=== PATIENT | female | born 1970 | race Caucasian/White ===

== ENCOUNTER → 2018-10-21 | Outpatient (CLI) | payer OTHER ==
[~2018-10-21] MED LIST: IOHEXOL 300 MG/ML 75 ML VIAL. IV ONE
--- NOTE | 2018-10-21 14:52 | RAD ---
CT of the neck with contrast, 10/21/2018: History: Left clavicular region lump Multidetector CT imaging was performed following an IV bolus injection of iodinated contrast material. Multiplanar reconstructions were produced. There are hypertrophic degenerative change at the sternoclavicular articulations, worse on the left. A BB placed on the skin surface at this level suggests that the spurring at the left sternoclavicular joint corresponds to the area of palpable concern. There are also degenerative changes at the first costosternal articulations. No soft tissue mass is seen. The parotid, submandibular and thyroid glands are symmetric. The laryngeal region is unremarkable. A few small cervical lymph nodes are noted bilaterally without evidence of pathologic enlargement. There is mild mucosal thickening along the floor the right maxillary sinus. No free fluid is evident in the visualized paranasal sinuses. There are minimal marginal spurs in the cervical spine. No fracture or destructive bony lesion is seen. IMPRESSION: 1. Hypertrophic degenerative changes at the sternoclavicular articulations, worse on the left, corresponding to the area of palpable concern. 2. Mild mucosal thickening in the right maxillary sinus. PQRS Compliance Statement: One or more of the following individualized dose reduction techniques were utilized for this examination: 1. Automated exposure control 2. Adjustment of the mA and/or kV according to patient size 3. Use of iterative reconstruction technique PQRS Compliance Statement: One or more of the following individualized dose reduction techniques were utilized for this examination: 1. Automated exposure control 2. Adjustment of the mA and/or kV according to patient size 3. Use of iterative reconstruction technique
== END | disposition home or self-care (01) ==
LOC: CT 07:40
PROVIDERS: ATTEND Registered Nurse
DX: M89.312 Hypertrophy of bone, left shoulder (principal); M46.02 Spinal enthesopathy, cervical region; M19.012 Primary osteoarthritis, left shoulder; J34.89 Other specified disorders of nose and nasal sinuses
CPT/HCPCS: 70491; Q9967

== ENCOUNTER → 2019-05-13 | Day surgery (SDC) | payer OTHER ==
[~2019-05-13] MED LIST changes: +AMLO5TAB10 PO; +BUPR300T3 PO; +DEXAMETHASONE SOD PHOS 20 MG/5 ML VIAL. ONE; +ESCITALOPRAM OX20 MG PO; +FAMOTIDINE 20 MG/2 ML VIAL ONE; +GELATIN SPONGE SIZE 100. ONE; +GELATIN SPONGE SIZE 100. TP ONE; +HYDROcodone/APAP 5/325MG 1 TAB TABLET ONE; +HYDROcodone/APAP 5/325MG 1 TAB TABLET PO ONE; -IOHEXOL 300 MG/ML 75 ML VIAL. IV ONE; +IV RINGERS SOLUTION,LACTATED 1,000 ML IV SCH; +LEVO100T5 PO; +LIDOCAINE 2% PF Vial for OR 5 ML VIAL. ONE; +METHYLENE BLUE 1% IJ PRN; +MORPHINE SULFATE 2 MG/ML DISP.SYRIN. IV PRN; +MORPHINE SULFATE 4 MG/ML DISP.SYRIN. IV PRN; +OLME1TAB23 PO; +ONDANSETRON PF 4 MG/2 ML VIAL. IV PRN; +ONDANSETRON PF 4 MG/2 ML VIAL. ONE; +PANT20TA58 PO; +PHEN37.599 PO; +PROPOFOL 10,000 MCG/ML (20ML) VIAL IV ONE; +SEVOFLURANE 31 TO 60 MINUTES. IH ONE; +[UNRECOGNIZED DRUG - OTHER] ONE
--- NOTE | 2019-05-13 09:49 | DISCH ---
DISCHARGE INSTRUCTIONS-DC Condition on Discharge Condition on Discharge: Stable Activity after Discharge Activity Instructions for Disc: Activity as tolerated, Avoid exertion Driving Instructions after Dis: Do not drive today Diet after Discharge Diet after Discharge: Regular Wound/Incision Care Other wound/incision instructi: frequent sitz bathes Follow-Up Follow up with: Juan Diego two weeks DIANA CELESTE MD May 13, 2019 09:49
--- NOTE | 2019-05-13 09:53 | PDOC ---
BRIEF OPERATIVE NOTE Date: May 13, 2019 Pre-Op Diagnosis anal papilla Post-Op Diagnosis same Procedure Performed EUA, excision anal papilla Surgeon Juan Diego Anesthesia Type: General Blood Loss 10cc IV Fluid 600cc Specimens Obtained anal papilla Findings papilla, fissure Complications none Additional Remarks # [id number] DIANA CELESTE MD May 13, 2019 09:53
--- NOTE | 2019-05-13 10:04 | OP ---
DATE OF SURGERY: 05/13/2019 PREOPERATIVE DIAGNOSIS: Anal papilla. POSTOPERATIVE DIAGNOSIS: Anal papilla. PROCEDURE: Exam under anesthesia and excision of anal papilla. SURGEON: Diana Celeste MD ANESTHESIA: General LMA. ESTIMATED BLOOD LOSS: 10 mL. INTRAVENOUS FLUIDS: 600 mL. DESCRIPTION OF PROCEDURE: The patient was brought to the operating suite, given a general LMA and placed in the dorsal lithotomy position. Prepping the perineum and perianal area. A 0.5% Marcaine with epinephrine was infiltrated circumferentially around the anus. General two-finger dilatation was carried out. With a retractor in place, the papilla and associated ulceration were identified. A 2-0 chromic hemostatic stitch was placed proximally. The perianal skin incised and the LigaSure used to remove the papilla avoiding the sphincter. 2-0 chromic used for hemostasis. When hemostasis was present, a Gelfoam pack was placed in the anal canal. Sterile dressing applied. The patient was taken out of the lithotomy position, awakened from her anesthetic and taken to the recovery room in satisfactory condition. DIANA CELESTE MD DR: MANASA/janet JOB#: [id number] / [id number]
[2019-05-13 10:50] VITALS: BP 125/83
--- NOTE | 2019-05-15 15:07 | PATHOLOGY ---
[facility] Accession Number: [id number] . 01 Material submitted: . anus - ANAL PAPILLAE . 01 Clinical history: . Anal papillae . 02 Diagnosis: Segments of anal skin and squamous mucosa and underlying soft tissue, anal papillae, excision: - Hypertrophied anal papillae, with focal chronic inflammation. - Hemorrhoids, focal. . (JP:mm; 05/15/2019) [facility] 05/15/2019 1034 Local . 02 Comment: There is no evidence of malignancy. . ([facility]:mm; 05/15/2019) . 02 Electronically signed: . Lonnie Kelley MD, Pathologist NPI- [id number] . 01 Gross description: . The specimen is received in formalin, labeled "Evelina Richard, anal papillae". Received are three segments of epithelial covered tissue ranging in size from 0.6 x 0.5 x 0.3 to 2.6 x 1.9 x 1.3 cm in greatest dimensions. Sectioning reveals pale shearer to highly vascularized cut surfaces. Livestock Dealer sections from each segment are submitted in cassette A1. ([facility]; 05/14/2019) QA/[facility] 05/14/2019 0843 Local . 02 Pathologist provided ICD-10: K62.89, K64.8 . 02 CPT . 988121 Specimen Comment: A courtesy copy of this report has been sent to [phone], [phone] Specimen Comment: [id number] Specimen Comment: Report sent to and Performed at: [address], [place], [place] [id number] MD Jerson Oconnor MD Phone: [phone] Performed at: 02 [facility] [address] [place], [place] [id number] MD Lonnie Kelley MD Phone: [phone]
== END ==
LOC: SURG 08:07
PROVIDERS: ATTEND Surgery
DX: K62.89 Other specified diseases of anus and rectum (principal); K64.8 Other hemorrhoids
CPT/HCPCS: 46220; 88305; J1100; J1956; J2405; J2704; J3010; J3490; J2001

== ENCOUNTER 2019-09-25 19:10 | Emergency (ER) | payer BC, OTHER ==
[~2019-09-25] VITALS: Ht 162.6 cm; Wt 175.0 kg
[~2019-09-25 19:10] MED LIST changes: -DEXAMETHASONE SOD PHOS 20 MG/5 ML VIAL. ONE; -FAMOTIDINE 20 MG/2 ML VIAL ONE; -GELATIN SPONGE SIZE 100. ONE; -GELATIN SPONGE SIZE 100. TP ONE; -HYDROcodone/APAP 5/325MG 1 TAB TABLET ONE; -HYDROcodone/APAP 5/325MG 1 TAB TABLET PO ONE; -IV RINGERS SOLUTION,LACTATED 1,000 ML IV SCH; -LIDOCAINE 2% PF Vial for OR 5 ML VIAL. ONE; -METHYLENE BLUE 1% IJ PRN; -MORPHINE SULFATE 2 MG/ML DISP.SYRIN. IV PRN; -MORPHINE SULFATE 4 MG/ML DISP.SYRIN. IV PRN; -ONDANSETRON PF 4 MG/2 ML VIAL. IV PRN; -ONDANSETRON PF 4 MG/2 ML VIAL. ONE; -PROPOFOL 10,000 MCG/ML (20ML) VIAL IV ONE; -SEVOFLURANE 31 TO 60 MINUTES. IH ONE; -[UNRECOGNIZED DRUG - OTHER] ONE
[2019-09-25] MEDS ORDERED: IV NORMAL SALINE 1,000ML 1,000 ML IV ONE (19:30)
--- NOTE | 2019-09-25 19:43 | PHYS DOC ---
Past History Past Medical History: Asthma, Hypertension Past Medical History thyroid Past Surgical History: Cholecystectomy, Smoking: Non-smoker Alcohol Use: Rarely Drug Use: None General Adult EDM: Chief Complaint: RAPID HEART RATE HPI: HPI: Patient is a 49 year old female who presents for evaluation of heart palpitations, generalized numbness and dizziness. Onset of symptoms over the past 2 days. Patient states that she is not been feeling well during that timeframe. Patient states her pulse at home was as high as 120. Blood pressure was stable but low at 105 over 70s. Patient has a history of hypertension, asthma and hypothyroid. Patient does not have chest pain or shortness of air and is nontoxic-appearing Review of Systems: Review of Systems: Constitutional: Denies fever or chills Eyes: Denies change in visual acuity HENT: Denies nasal congestion or sore throat Respiratory: Denies cough or shortness of breath Cardiovascular: Denies chest pain or edema GI: Denies abdominal pain, nausea, vomiting, bloody stools or diarrhea : Denies dysuria Musculoskeletal: Denies back pain or joint pain Integument: Denies rash Neurologic: Denies headache, focal weakness or sensory changes, has dizziness Endocrine: Denies polyuria or polydipsia Lymphatic: Denies swollen glands Psychiatric: Denies depression or anxiety Heart Score: Risk Factors: Risk Factors: DM, Current or recent (<one month) smoker, HTN, HLP, family history of CAD, obesity. Risk Scores: Score 0 - 3: 2.5% MACE over next 6 weeks - Discharge Home Score 4 - 6: 20.3% MACE over next 6 weeks - Admit for Clinical Observation Score 7 - 10: 72.7% MACE over next 6 weeks - Early Invasive Strategies Current Medications: Current Meds: Current Medications Medications (Trade) Dose Ordered Sig/Tim Start Time Stop Time Status Last Admin Dose Admin Sodium Chloride 1,000 ml @ 75 mls/hr 1X ONCE 09/25/19 19:30 09/26/19 08:49 09/25/19 19:40 75 MLS/HR Allergies: Allergies: Allergies Coded Allergies Type Severity Reaction Last Updated Verified Penicillins Allergy Unknown 05/13/19 Yes Physical Exam: PE: Constitutional: Well developed, well nourished, mild acute distress, non-toxic appearance. [] HENT: Normocephalic, atraumatic, bilateral external ears normal, oropharynx moist, no oral exudates, nose normal. [] Eyes: PERRL, EOMI, conjunctiva normal, no discharge. [] Neck: Normal range of motion, no tenderness, supple, no stridor. [] Cardiovascular:Heart rate regular rhythm, no murmur [] Lungs & Thorax: Bilateral breath sounds clear to auscultation [] Abdomen: Bowel sounds normal, soft, no tenderness, no masses, no pulsatile masses. [] Skin: Warm, dry, no erythema, no rash. [] Back: No tenderness, no CVA tenderness. [] Extremities: No tenderness, no cyanosis, no clubbing, ROM intact, no edema. [] Neurologic: Alert and oriented X 3, normal motor function, normal sensory function, no focal deficits noted. [] Psychologic: anxious mood. [] Current Patient Data: Labs: Laboratory Tests Test 09/25/19 19:40 White Blood Count 8.9 x10^3/uL Red Blood Count 4.52 x10^6/uL Hemoglobin 14.2 g/dL Hematocrit 40.8 % Mean Corpuscular Volume 90 fL Mean Corpuscular Hemoglobin 31 pg Mean Corpuscular Hemoglobin Concent 35 g/dL Red Cell Distribution Width 14.7 % Platelet Count 333 x10^3/uL Neutrophils (%) (Auto) 57 % Lymphocytes (%) (Auto) 33 % Monocytes (%) (Auto) 8 % Eosinophils (%) (Auto) 2 % Basophils (%) (Auto) 1 % Neutrophils # (Auto) 5.1 x10^3uL Lymphocytes # (Auto) 2.9 x10^3/uL Monocytes # (Auto) 0.7 x10^3/uL Eosinophils # (Auto) 0.2 x10^3/uL Basophils # (Auto) 0.1 x10^3/uL Sodium Level 142 mmol/L Potassium Level 3.4 mmol/L Chloride Level 104 mmol/L Carbon Dioxide Level 27 mmol/L Anion Gap 11 Blood Urea Nitrogen 21 mg/dL Creatinine 1.1 mg/dL Estimated GFR (Cockcroft-Gault) 53.0 BUN/Creatinine Ratio 19 Glucose Level 100 mg/dL Calcium Level 9.0 mg/dL Total Bilirubin 0.2 mg/dL Aspartate Amino Transf (AST/SGOT) 8 U/L Alanine Aminotransferase (ALT/SGPT) 23 U/L Alkaline Phosphatase 42 U/L Troponin I Quantitative < 0.017 ng/mL Total Protein 6.9 g/dL Albumin 3.6 g/dL Albumin/Globulin Ratio 1.1 Current Medications Medications (Trade) Dose Ordered Sig/Tim Route PRN Reason Start Time Stop Time Status Last Admin Dose Admin Sodium Chloride 1,000 ml @ 75 mls/hr 1X ONCE IV 09/25/19 19:30 09/26/19 08:49 09/25/19 19:40 EKG: EKG: EKG: Normal sinus rhythm, rate 95, leftward axis, not STEMI, read at 1940 [] Radiology/Procedures: Radiology/Procedures: [address] [address] IMAGING REPORT Signed PATIENT: CEM AGOSTO LACCOUNT: [id number] : 1970 LOCATION: ER AGE: 49 SEX: F EXAM STATUS: REG ER ORD. PHYSICIAN: EDUARDO VANG DO REASON: short of air PROCEDURE: CHEST AP ONLY Exam: Chest one view INDICATION: Short of air TECHNIQUE: Frontal view of the chest Comparisons: 05/30/2015 FINDINGS: The cardiomediastinal silhouette and pulmonary vessels are within normal limits. The lung and pleural spaces are clear. IMPRESSION: No acute cardiopulmonary process. Electronically signed by: Angeles Gipson MD (09/25/2019 8:46 PM) [id number] DICTATED AND SIGNED BY: ANGELES IGPSON MD DATE: 09/25/192045 CC: ANTONIETA ELLINGTON; EDUARDO VANG DO ~ ] Course & Med Decision Making: Course & Med Decision Making Pertinent Labs and Imaging studies reviewed. (See chart for details) 2215 stable, feeling better at this time. Patient is in a normal sinus rhythm normal rate, blood pressure is stable as well. Patient no longer feels the palpitations. Patient is stable for close follow-up. She will call her family doctor and may need referral to a manager location and get a Holter monitor. No emergency indication for admission at this time. Patient with a steady gait with no focal deficits or lateralizing signs. No known exposure to any COVID patient noted she have any obvious COVID symptoms. Dragon Disclaimer: Dragon Disclaimer: This electronic medical record was generated, in whole or in part, using a voice recognition dictation system. Departure Departure: Impression: Primary Impression: Heart palpitations Additional Impressions: Dizziness Dehydration Disposition: 01 HOME, SELF-CARE Condition: STABLE Referrals: ANTONIETA ELLINGTON (PCP) Patient Instructions: Dehydration, Adult, Dizziness, Palpitations Additional Instructions: Drink plenty fluids, rest, avoid caffeine or stimulants, get plenty of sleep and rest, call and see your doctor right away in follow-up. You may need to see a manager location and get a Holter monitor soon as well EDUARDO VANG DO September 25, 2019 19:43
[2019-09-25 20:18] LABS: BASO # 0.1 x10^3/uL (0.0-0.2); BASO % 1 % (0-3); EOS # 0.2 x10^3/uL (0.0-0.7); EOS % 2 % (0-3); HEMATOCRIT 40.8 % (36.0-47.0); HEMOGLOBIN 14.2 g/dL (12.0-15.5); LYMPH # 2.9 x10^3/uL (1.0-4.8); LYMPH % 33 % (24-48); MEAN CORPUSCULAR HEMOGLOBIN 31 pg (25-35); MEAN CORPUSCULAR HGB CONC 35 g/dL (31-37); MEAN CORPUSCULAR VOLUME 90 fL (79-100); MONO # 0.7 x10^3/uL (0.0-1.1); MONO % 8 % (0-9); NEUT # 5.1 x10^3uL (1.8-7.7); NEUT % 57 % (31-73); PLATELET COUNT 333 x10^3/uL (140-400); RED BLOOD COUNT 4.52 x10^6/uL (3.50-5.40); RED CELL DISTRIBUTION WIDTH 14.7 % (11.5-14.5); WHITE BLOOD COUNT 8.9 x10^3/uL (4.0-11.0)
[2019-09-25 20:26] LABS: CREATININE 1.1 mg/dL (0.6-1.0); POTASSIUM 3.4 mmol/L (3.5-5.1)
[2019-09-25 20:31] LABS: ALBUMIN 3.6 g/dL (3.4-5.0); ALBUMIN/GLOBULIN RATIO 1.1 (1.0-1.7); TOTAL BILIRUBIN 0.2 mg/dL (0.2-1.0); TOTAL PROTEIN 6.9 g/dL (6.4-8.2)
--- NOTE | 2019-09-25 20:49 | RAD ---
Exam: Chest one view INDICATION: Short of air TECHNIQUE: Frontal view of the chest Comparisons: 05/30/2015 FINDINGS: The cardiomediastinal silhouette and pulmonary vessels are within normal limits. The lung and pleural spaces are clear. IMPRESSION: No acute cardiopulmonary process. Electronically signed by: Angeles Ochoa MD (09/25/2019 8:46 PM) [id number]
[2019-09-25 22:21] VITALS: BP 115/87
[2019-09-26 10:51] LABS: FREE T4 1.41 ng/dL (0.76-1.46); THYROID STIM HORMONE (TSH) 1.186 uIU/mL (0.358-3.740)
--- NOTE | 2019-09-26 11:54 | EKG ---
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
== END 2019-09-25 22:45 | disposition home or self-care (01) ==
LOC: ER 19:10
DX: R00.2 Palpitations (principal); E86.0 Dehydration; R42 Dizziness and giddiness; J45.909 Unspecified asthma, uncomplicated; I10 Essential (primary) hypertension; Z88.0 Allergy status to penicillin
CPT/HCPCS: 36415; 71045; 80053; 84439; 84443; 84484; 85025; 93005; 96360; 96361; 99285-25; J7030

== ENCOUNTER → 2020-06-29 | Outpatient (CLI) | payer BC ==
[~2020-06-29] MED LIST changes: +AMLO-186 PO; -AMLO5TAB10 PO
--- NOTE | 2020-06-29 17:32 | RAD ---
Examination: Bilateral digital diagnostic mammogram. INDICATION: 50-year-old woman due for mammographic screening presents for completion imaging surveill ance of a previously reported probably benign left breast mass. COMPARISON: No prior imaging examinations are currently available for review but the report from the diagnostic mammogram and left breast ultrasound of October 17, 2018 at [facility] is available for review. TECHNIQUE: CC and MLO views of both breasts with 2-D and 3-D technique were obtained and reviewed wit h computer-aided detection. A full field right ML view with 2-D technique and Additional imaging by u nataliia was not pursued at this visit due to patient time limitations. FINDINGS: Scattered fibroglandular densities. Right mammogram is negative. Left mammogram shows an asymmetry in the lateral posterior left breast best seen on the cc view. This could represent an island of overlapping dense fibroglandular tissue as a definite mammographic imani elate on the oblique lateral view or the true lateral view is not well seen. Furthermore, the asymmet ry appeared to partially dissipate on spot compression in the CC projection. Additional imaging by targeted left breast ultrasound was planned but due to a scheduling conflict th e patient reported, this is deferred to when the patient can better accommodate additional imaging. IMPRESSION: Incomplete. Left breast needs additional imaging. BI-RADS Category 0 Incomplete. Needs additional imaging evaluation Recommend targeted ultrasound of the posterior lateral left breast centered at the 3:00 position 10 c m from the nipple. The breast center will remain in contact with the patient to assist the patient wa s scheduling and completing recommended imaging follow-up. Electronically signed by: Marcelo Ureña MD (06/29/2020 5:30 PM) [id number]
== END ==
LOC: MAMMO 12:51
PROVIDERS: ATTEND Physician Assistant Medical
DX: N60.02 Solitary cyst of left breast (principal)
CPT/HCPCS: 77066; G0279; 77062

== ENCOUNTER → 2020-07-13 | Outpatient (CLI) | payer BC ==
--- NOTE | 2020-07-13 13:44 | RAD ---
Examination: Limited left breast ultrasound INDICATION: Patient returns for completion of recommended imaging follow-up for probably benign findi ng in the left breast, and incomplete imaging assessment on recent diagnostic mammography due to a sc heduling conflict. COMPARISON: Mammogram of 06/29/2020, 10/17/2018 and limited left breast ultrasound of 10/17/2018 FINDINGS: Targeted ultrasound of the left breast identifies at the 3:00 position 10 cm from nipple a 3 mm hypoe choic parallel orientation nodule deep in the left breast that could represent a complicated cyst. No internal vascularity. No axillary adenopathy on sonographic survey of the left axilla. IMPRESSION: Probably benign complicated cyst in the posterior left breast at the approximate 3:00 position 10 cm from the nipple. BI-RADS Category 3 Probably benign findings Recommend 6 month follow-up left diagnostic mammogram and targeted left breast ultrasound. . Electronically signed by: Marcelo Ureña MD (07/13/2020 1:42 PM) [id number]
== END ==
LOC: US 12:36
PROVIDERS: ATTEND Physician Assistant Medical
DX: N60.02 Solitary cyst of left breast (principal)
CPT/HCPCS: 76641

== ENCOUNTER → 2020-12-06 | Outpatient (CLI) | payer BC ==
--- NOTE | 2020-12-06 13:07 | RAD ---
EXAM: Paranasal sinuses, 4 views. HISTORY: Sinusitis. COMPARISON: None. FINDINGS: 4 views of the paranasal sinuses are obtained. There is no sinus opacification or air-fluid level. There is minimal nasal septal deviation. There is dental amalgam. There is no suspicious calv arial lesion. IMPRESSION: No radiographic evidence of acute sinusitis. Electronically signed by: Gale Bernstein MD (12/06/2020 1:05 PM) [id number]
== END ==
LOC: RAD 12:42
PROVIDERS: ATTEND Otolaryngology
DX: J32.0 Chronic maxillary sinusitis (principal); J34.2 Deviated nasal septum
CPT/HCPCS: 70220

== ENCOUNTER → 2021-05-29 | Outpatient (CLI) | payer BC ==
--- NOTE | 2021-05-29 14:16 | RAD ---
Examination: Left diagnostic mammogram. INDICATION: 51-year-old woman presents for 6 month mammographic and sonographic follow-up of the left breast COMPARISON: Left breast ultrasound from 07/13/2020 and mammogram from 06/29/2020. TECHNIQUE: CC and MLO views of the left breast with 2-D and 3-D technique were obtained and reviewed with computer-aided detection. Targeted left breast ultrasound was also performed. FINDINGS: Scattered fibroglandular densities. Left mammogram redemonstrates an asymmetry in the lateral posterior left breast best seen on the cc v iew. No dominant masses, architectural distortion, or suspicious calcifications. Targeted left breast ultrasound redemonstrates a oval parallel oriented gently lobulated hypoechoic m ass at the 3:00 position, 9 cm deep to the nipple measuring up to 1 cm in maximal diameter. There is no suspicious vascularity with normal through transmission of sound. This is similar in size and appe arance from the prior ultrasound. There is no new suspicious abnormalities seen. Left axillary lymph nodes are unremarkable. IMPRESSION: Probably benign fibrocystic type change in the left breast, posterior depth BI-RADS 3. Probably benign. Recommend six-month follow-up left breast diagnostic mammogram and target ed left breast ultrasound. Patient will be due for bilateral annual mammogram at that time as well. Electronically signed by: Fantasma Chen DO (05/29/2021 2:14 PM) [id number]
== END ==
LOC: MAMMO 12:40
PROVIDERS: ATTEND Physician Assistant Medical
DX: N63.23 Unspecified lump in the left breast, lower outer quadrant (principal)
CPT/HCPCS: 76641; 77065; G0279; 77061